=== PATIENT | male | born 1940 | race Caucasian/White ===

== ENCOUNTER 2022-03-06 07:35 | Day surgery (SDC) | payer MEDICARE, BC, SELFPAY ==
--- NOTE | 2022-03-06 07:33 | ANES.PREOP_ITS ---
General Info Date of Service Date Performed: 03/06/22 Height: 5 ft 10 in Weight: 86.2 kg Body Mass Index (BMI): 27.2 Surgical Procedure: Operation Date: 03/06/22 09:10 Proposed Procedure Side Surgeon p Cataract Extraction with IOL Implant Left Ramakrishna Augustine MD Meds Allergies and Home Medications Allergies Allergy/AdvReac Type Severity Reaction Status Date / Time No Known Allergies Allergy Verified 03/06/22 08:02 Home Medication Medication Instructions Recorded amlodipine 2.5 mg tablet 2.5 mg PO HS 03/02/22 ascorbic acid (vitamin C) 500 mg 500 mg PO DAILY 03/02/22 tablet (Vitamin C) calcium carbonate 600 mg-vitamin 1 tab PO DAILY 03/02/22 D3 5 mcg (200 unit) tablet cholecalciferol (vitamin D3) 25 1,000 unit PO DAILY 03/02/22 mcg (1,000 unit) capsule (Vitamin D3) doxazosin 8 mg tablet 8 mg PO DAILY 03/02/22 finasteride 5 mg tablet 5 mg PO DAILY 03/02/22 hydrochlorothiazide 12.5 mg tablet 12.5 mg PO QAM 03/02/22 ibuprofen 200 mg tablet 200 - 400 mg PO Q6H PRN 03/02/22 lisinopril 20 mg tablet 20 mg PO DAILY 03/02/22 omega-3 fatty acids 1 cap PO DAILY 03/02/22 omeprazole 40 mg capsule,delayed 40 mg PO HS 03/02/22 release selenium 50 mcg tablet 50 mcg PO QWEEK 03/02/22 simvastatin 20 mg tablet 20 mg PO HS 03/02/22 aspirin 81 mg capsule,delayed 81 mg PO DAILY 03/03/22 release Current Visit Medications: Current Medications Generic Name Dose Route Start Last Admin Trade Name Freq PRN Reason Stop Dose Admin Acetaminophen 1,000 mg 03/06/22 06:00 Acetaminophen 500 Mg Tab PO Q4H PRN PRN Miscellaneous Medication 0 ml 03/06/22 06:00 Prednisolone 1%, Moxifloxacin 0.5%, Nepafenac 0.1% 5ml Btl OS DIRECTED [facility] Miscellaneous Medication 0 ml 03/06/22 06:00 Tropicam./Phenyleph. (1/2.5%) 5 Ml Btl OS DIRECTED [facility] Tetracaine HCl 0 ml 03/06/22 06:00 Tetracaine 0.5% 4 Ml Btl OS DIRECTED [facility] PFS Active Problems Active Problems: Problem Status Onset Code Posterior subcapsular age-related cataract of left eye H25.042 Nuclear sclerotic cataract of left eye H25.12 Medical History Medical History BPH (benign prostatic hyperplasia) Bradycardia DJD (degenerative joint disease) First degree heart block and rare PVC on EKG 2013 & 2017 GERD (gastroesophageal reflux disease) Glucose intolerance Hearing loss Hepatitis B Hypertension Tear of meniscus of left knee Surgical History Surgical History History of laparoscopic appendectomy Hx of tonsillectomy Tobacco Smoking/Tobacco Use Status: Never Alcohol Alcohol Intake: current Alcohol intake frequency: 0-2 drinks per day Substance Use Substance use type: does not use Vital Signs and Lab Results Lab Results Blood Type / Crossmatch: No Data to Display Complete Blood Count: No Data to Display Complete Metabolic Panel: No Data to Display Liver Function Panel: No Data to Display Coagulation Panel: No Data to Display Cardiac Panel: No Data to Display Arterial Blood Gas: No Data to Display Venous Blood Gas: No Data to Display Pancreas Panel: No Data to Display Thyroid Panel: No Data to Display Infectious Disease: No Data to Display Blood Cultures: No Data to Display Toxicology Panel: 2 No Data to Display Anesthesia Assessment and Plan Anesthesia History Personal History: No History of Anesthesia Complications Family History: No Family History of Anesthesia Complications Exercise Tolerance Exercise Tolerance: Metabolic Equivalents>4 Pertinent Negatives Pertinent Negatives: No Symptoms of GERD Cardiac & Pulmonary Exam Cardiac Exam: Normal S1/S2 Heart Sounds Pulmonary Exam: Clear Bilateral Breath Sounds Implantable Cardiac Device Does patient have a Pacemaker or an ICD?: No Airway Exam Known Difficult Airway: No Mallampati Class: 2 Mouth Opening: Normal (> 3cm) Thyromental Distance: Greater than 3 cm Neck Range of Motion: Full ROM Neck Circumference: Normal Teeth Condition: Normal Dentition ASA Classification ASA Score: ASA 2 Emergency Case?: No NPO Status NPO Status: NPO Clears >2 hours, Solids >8 hours Anesthesia Plan Resuscitation Status: Full Code Anesthesia Technique: MAC Anesthesia Airway Planned: Natural Airway Monitors Used: Standard Monitors
[2022-03-06 08:06] VITALS: BP 162/80; PULSE 64; RESP 16; TEMP 36.5; O2SAT 96
[2022-03-06] MEDS: Tropicam./Phenyleph. (1/2.5%) 5 ML BTL OS ×3 (08:18→08:29)
[2022-03-06] MEDS: Tetracaine 0.5% 4 ML BTL OS (08:39)
[2022-03-06] MEDS: Povidone-Iodine Ophth 30 ML BTL (08:41)
[2022-03-06] MEDS: Lidocaine 2% Jelly 6 ML SYR (08:44)
[2022-03-06 08:45] VITALS: BMI 27.2
[2022-03-06] MEDS: Duovisc Viscoelastic System EACH 1 EACH (08:46)
[2022-03-06] MEDS: Balanced Salt Soln.-PLUS 500 ML BAG (08:46)
[2022-03-06 09:09] VITALS: BP 148/81; PULSE 62; RESP 16; TEMP 36.5; O2SAT 92
--- NOTE | 2022-03-06 09:09 | W.PM.DSUDISC ---
Discharge Plan Disposition Patient Disposition: HOME Condition: Good Discharge Details Attending Provider: Ramakrishna Augustine Primary Care Provider: Ramakrishna Blanca Home Meds and New Rx's Prescriptions: No Action lisinopril 20 mg tablet 20 mg PO DAILY 0RF Label Comments: TAKE ONE TABLET BY MOUTH ONE TIME DAILY amlodipine 2.5 mg tablet 2.5 mg PO HS 0RF Label Comments: TAKE ONE TABLET BY MOUTH ONE TIME DAILY calcium carbonate-vitamin D3 [Calcium + D] 600 mg-5 mcg (200 unit) Tablet 1 tab PO DAILY 0RF omeprazole 40 mg capsule,delayed release(DR/EC) 40 mg PO HS 0RF Label Comments: Take 1 capsule by mouth 30 minutes before meals twice a day selenium 50 mcg Tablet 50 mcg PO QWEEK 0RF doxazosin 8 mg tablet 8 mg PO DAILY 0RF Label Comments: TAKE ONE TABLET BY MOUTH ONE TIME DAILY ascorbic acid (vitamin C) [Vitamin C] 500 mg Tablet 500 mg PO DAILY 0RF simvastatin 20 mg tablet 20 mg PO HS 0RF Label Comments: TAKE ONE TABLET BY MOUTH IN THE EVENING ibuprofen 200 mg Tablet 200 - 400 mg PO Q6H PRN0RF finasteride 5 mg tablet 5 mg PO DAILY 0RF Label Comments: TAKE ONE TABLET BY MOUTH ONE TIME DAILY cholecalciferol (vitamin D3) [Vitamin D3] 25 mcg (1,000 unit) Capsule 1,000 unit PO DAILY 0RF Fish Oil Capsule 1 cap PO DAILY 0RF hydrochlorothiazide 12.5 mg tablet 12.5 mg PO QAM 0RF Label Comments: TAKE ONE TABLET BY MOUTH IN THE MORNING aspirin 81 mg Capsule,Delayed Release(Dr/Ec) 81 mg PO DAILY 0RF Discharge Instructions Stand Alone Forms: Post-op Topical Cataract, Bj Moy (DSU) Discharge Orders Discharge Orders: Discharge Order (Routine); Ordered 03/06/22 Ordered By: Ramakrishna Augustine DS: Diagnosis Discharge Diagnosis (1) Nuclear sclerotic cataract of left eye: Status: Resolved (2) Posterior subcapsular age-related cataract of left eye: Status: Resolved
--- NOTE | 2022-03-06 09:10 | W.PM.OP ---
Date of service: 03/06/22 Time of Service: 09:10 Operative Note Operative Note DATE OF PROCEDURE: 03/06/22 PRE-OP DIAGNOSIS: Nuclear/posterior subcapsular cataract, left eye POST-OP DIAGNOSIS: same PROCEDURE: Cataract extraction using phacoemulsification with intraocular lens implant, left eye SURGEON: Ramakrishna Augustine ANESTHESIA TYPE: Local By Surgeon and MAC Refer to Anesthesia Record PATHOLOGY: none sent COMPLICATIONS: None Patient was transported to: same day Patient's condition: stable Implants: Mario and Mario / [employer] Tecnis [id number] Indications: Progressive decreased vision due to cataract, left eye Procedure Description: CATARACT SURGERY OPERATIVE REPORT PREOPERATIVE DIAGNOSIS: 1. Nuclear/posterior subcapsular cataract, left eye POSTOPERATIVE DIAGNOSIS: Same OPERATION: 1. Cataract extraction using phacoemulsification with posterior chamber intraocular lens implant, left eye. IOL: IOL Esl Professor/Model: Mario & Mario / ADRIENNE Tecnis [id number] IOL Power: + 18.0 diopters IOL Serial Number: [id number] Optic Diameter: 6.0 mm Haptic/Overall Diameter: 13.0 mm PHACO INFO: Jose [employer] Vision System with OZil and Active Fluidics Cumulative Dispersed Energy (CDE): 16.61 seconds SURGEON: Ramakrishna Augustine MD, DULCE ANESTHESIA: Monitored A [facility] (MAC), with local sub-tenon's anesthetic infiltration COMPLICATIONS: None SPECIMENS: None INDICATIONS FOR PROCEDURE: The patient is an 81-year-old male with history of diminished visual acuity in his left eye secondary to the development of significant nuclear and posterior subcapsular cataract. The option of cataract surgery was offered to the patient and he felt he was symptomatic enough that he wished to proceed. PROCEDURE: The correct surgical eye was identified and marked as the left eye and the pupil was dilated in the preoperative area using mydriatics and cycloplegics. The dilated pupil size was 8.0 mm. Oral sedation was administered in the form of an Imprimis MKO Melt (midazolam 3mg/ketamine 25mg/ondansetron 2mg). The patient was brought to the operating room where cardiopulmonary monitoring was instituted and surgical time-out was performed, confirming the correct operative eye and IOL power. Topical anesthesia was administered and ophthalmic povidone-iodine 5% was instilled into the conjunctival fornices. Lidocaine gel was applied to the cornea and the shavonne-ocular area was prepped with Betadine 10% solution and draped in the usual sterile fashion for intraocular surgery, including an aperture drape. A Tegaderm transparent film dressing was cut in half and used to cover the lashes and lid margins. Care was taken to sequester the lashes and lid margins under the Tegaderm dressing. A lid speculum was placed between the lids of the operative eye and the Jose [employer] Revalia operating microscope was maneuvered into position. Santos scissors were then used to make a conjunctival buttonhole approximately 6mm posterior to the limbus in the inferonasal quadrant. Blunt dissection was carried out to expose bare sclera, and a blunt-tipped sub-tenon?s anesthesia cannula was introduced and passed posteriorly along the globe where non-preserved plain lidocaine was injected into posterior sub-Tenon?s space. A sideport knife was used to make a paracentesis port superiorly/superiortemporally. Intraocular phenylephrine/lidocaine was injected int the anterior chamber.. The anterior chamber was filled with viscoelastic. A 2.4mm keratome knife was used to create a half-thickness groove at the limbus and then to construct a three-plane near-clear corneal tunnel extending 2.0mm into clear cornea at the 3:00 position. A flap was raised on the anterior capsule and capsulorhexis forceps were used to complete a continuous curvilinear capsulorhexis of 5.0 mm. Balanced salt solution was then used to perform cortical cleaving hydrodissection and nuclear hydrodelineation until the lens could be freely rotated within the capsular bag. The lens nucleus was then disassembled and removed within the capsular bag and iris plane using phacoemulsification. Residual cortical material was removed using the 45-degree angled silicone I/A tip with 0.3mm port. The posterior capsule was carefully polished to remove as much residual lens epithelial cells as safely possible. The capsular bag was then inflated and the anterior chamber deepened with viscoelastic. The lens implant described above was inserted into the capsular bag using the ADRIENNE [place] Injector. A Kuglen hook was used to dial the IOL into position. Residual viscoelastic was then removed first from posterior to the IOL, then from the anterior chamber using the I/A handpiece. The lens implant was noted to center nicely within the capsular bag. The incisions were stromally hydrated, and the anterior chamber was reformed using BSS. Then 0.5cc of moxifloxacin 1.0mg/ml were injected into the capsular bag and anterior chamber. The incisions were checked with a Weck spear and found to be secure. Several drops of ophthalmic povidone-iodine 5% were then applied to the eye followed by two drops of Imprimis combination prednisolone/moxifloxacin/nepafenac solution. The drapes were removed and a clear plastic protective eye shield was placed over the eye. The patient was then returned to Same Day Surgery in stable condition.
--- NOTE | 2022-03-06 09:27 | W.ANESPOSTOP ---
Postoperative Evaluation Date, Time and Location Date Performed: 03/06/22 Time Performed: 09:10 Patient Location: Day Surgery Unit Vital Signs Most Recent Imported Vital Signs: Most Recent Vital Signs Temp Pulse Resp BP Pulse Ox 36.5 C 62 16 148/81 H 92 03/06/22 09:09 03/06/22 09:09 03/06/22 09:09 03/06/22 09:09 03/06/22 09:09 Pain Score Most Recent Pain Score: Most Recent Pain Score Pain Level 0 03/06/22 08:06 Assessment Mental Status: Awake (Alert & Oriented to Patient Baseline) Airway and Respiratory Function: Patent airway with normal (patient baseline) respiratory exam Cardiovascular Function: Hemodynamically Stable Hydration Status: Adequately Hydrated Nausea & Vomiting: No Nausea or Vomiting Pain: Pt. Denies Any Pain Peripheral Nerve Block: Other (Local by Dr. Augustine)
[2022-03-06 09:40] VITALS: BP 130/70; PULSE 67; RESP 16; TEMP 36.5; O2SAT 94
== END 2022-03-06 09:49 | disposition home or self-care (01) ==
PROVIDERS: PCP Family Medicine; Visit Provider Ophthalmology
PROC: (CPT 66984; principal; 2022-03-06 09:00)
DX: H25.042 Posterior subcapsular polar age-related cataract, left eye (principal); I10 Essential (primary) hypertension; K21.9 Gastro-esophageal reflux disease without esophagitis; R00.1 Bradycardia, unspecified
CPT/HCPCS: 66984; V2632

== ENCOUNTER 2022-03-20 07:03 | Day surgery (SDC) | payer MEDICARE, BC, SELFPAY ==
--- NOTE | 2022-03-20 06:24 | W.ANESPRE ---
General Info Date of Service Date Performed: 03/20/22 Height: 5 ft 10 in Weight: 87 kg Body Mass Index (BMI): 27.5 Surgical Procedure: Operation Date: 03/20/22 08:25 Proposed Procedure Side Surgeon p Cataract Extraction with IOL Implant Right Ramakrishna Augustine MD Meds Allergies and Home Medications Allergies Allergy/AdvReac Type Severity Reaction Status Date / Time No Known Allergies Allergy Verified 03/20/22 07:18 Home Medication Medication Instructions Recorded amlodipine 2.5 mg tablet 2.5 mg PO HS 03/02/22 ascorbic acid (vitamin C) 500 mg 500 mg PO DAILY 03/02/22 tablet (Vitamin C) calcium carbonate 600 mg-vitamin 1 tab PO DAILY 03/02/22 D3 5 mcg (200 unit) tablet cholecalciferol (vitamin D3) 25 1,000 unit PO DAILY 03/02/22 mcg (1,000 unit) capsule (Vitamin D3) doxazosin 8 mg tablet 8 mg PO DAILY 03/02/22 finasteride 5 mg tablet 5 mg PO DAILY 03/02/22 hydrochlorothiazide 12.5 mg tablet 12.5 mg PO QAM 03/02/22 ibuprofen 200 mg tablet 200 - 400 mg PO Q6H PRN 03/02/22 lisinopril 20 mg tablet 20 mg PO DAILY 03/02/22 omega-3 fatty acids 1 cap PO DAILY 03/02/22 omeprazole 40 mg capsule,delayed 40 mg PO HS 03/02/22 release selenium 50 mcg tablet 50 mcg PO QWEEK 03/02/22 simvastatin 20 mg tablet 20 mg PO HS 03/02/22 aspirin 81 mg capsule,delayed 81 mg PO DAILY 03/03/22 release Current Visit Medications: Current Medications Generic Name Dose Route Start Last Admin Trade Name Freq PRN Reason Stop Dose Admin Acetaminophen 1,000 mg 03/20/22 06:00 Acetaminophen 500 Mg Tab PO Q4H PRN PRN Miscellaneous Medication 0 ml 03/20/22 06:00 Prednisolone 1%, Moxifloxacin 0.5%, Nepafenac 0.1% 5ml Btl OD DIRECTED [facility] Miscellaneous Medication 0 ml 03/20/22 06:00 Tropicam./Phenyleph. (1/2.5%) 5 Ml Btl OD DIRECTED [facility] Tetracaine HCl 0 ml 03/20/22 06:00 Tetracaine 0.5% 4 Ml Btl OD DIRECTED [facility] PFS Active Problems Active Problems: Problem Status Onset Code Posterior subcapsular age-related cataract, right eye H25.041 Nuclear sclerotic cataract of right eye H25.11 Nuclear sclerotic cataract of left eye H25.12 Posterior subcapsular age-related cataract of left eye H25.042 Medical History Medical History BPH (benign prostatic hyperplasia) Bradycardia DJD (degenerative joint disease) First degree heart block and rare PVC on EKG 2013 & 2017 GERD (gastroesophageal reflux disease) Glucose intolerance Hearing loss Hepatitis B Hypertension Tear of meniscus of left knee Surgical History Surgical History (Updated 03/20/22 @ 07:18 by Lena Briceno) History of laparoscopic appendectomy Hx of cataract surgery Hx of tonsillectomy Tobacco Smoking/Tobacco Use Status: Never Alcohol Alcohol Intake: current Alcohol intake frequency: 0-2 drinks per day Substance Use Substance use type: does not use Vital Signs and Lab Results Vital Signs Most Recent Vital Signs in EMR: Temp Pulse Resp BP Pulse Ox 36.2 C L 58 L 16 157/89 H 95 03/20/22 07:24 03/20/22 07:24 03/20/22 07:24 03/20/22 07:24 03/20/22 07:24 Lab Results Blood Type / Crossmatch: No Data to Display Complete Blood Count: No Data to Display Complete Metabolic Panel: No Data to Display Liver Function Panel: No Data to Display Coagulation Panel: No Data to Display Cardiac Panel: No Data to Display Arterial Blood Gas: No Data to Display Venous Blood Gas: No Data to Display Pancreas Panel: No Data to Display Thyroid Panel: No Data to Display Infectious Disease: No Data to Display Blood Cultures: No Data to Display Toxicology Panel: No Data to Display Anesthesia Assessment and Plan Anesthesia History Personal History: No History of Anesthesia Complications Family History: No Family History of Anesthesia Complications Exercise Tolerance Exercise Tolerance: Metabolic Equivalents>4 Cardiac & Pulmonary Exam Cardiac Exam: Normal S1/S2 Heart Sounds Pulmonary Exam: Clear Bilateral Breath Sounds Implantable Cardiac Device Does patient have a Pacemaker or an ICD?: No Airway Exam Known Difficult Airway: No Mallampati Class: 2 Mouth Opening: Normal (> 3cm) Thyromental Distance: Greater than 3 cm Neck Range of Motion: Full ROM Neck Circumference: Normal Teeth Condition: Normal Dentition ASA Classification ASA Score: ASA 2 Emergency Case?: No NPO Status NPO Status: NPO Clears >2 hours, Solids >8 hours Anesthesia Plan Resuscitation Status: Full Code Anesthesia Technique: MAC Anesthesia Airway Planned: Natural Airway Monitors Used: Standard Monitors Preoperative Comments:: 81 yo male for cataract removal. Sig PMHx: bradycardia, GERD, HTN. Previous cat had MKO. no health history change.
[2022-03-20] MEDS: Tropicam./Phenyleph. (1/2.5%) 5 ML BTL OD ×3 (07:17→07:29)
[2022-03-20 07:24] VITALS: BP 157/89; PULSE 58; RESP 16; TEMP 36.2; O2SAT 95
[2022-03-20 07:28] VITALS: BMI 27.5
--- NOTE | 2022-03-20 07:59 | ROE_ITS ---
Date of service: 03/20/22 Time of Service: 08:40 Operative Note Operative Note DATE OF PROCEDURE: 06/13/21 PRE-OP DIAGNOSIS: Nuclear/posterior subcapsular cataract, right eye POST-OP DIAGNOSIS: same PROCEDURE: Cataract extraction using phacoemulsification with intraocular lens implant, right eye SURGEON: Ramakrishna Augustine ANESTHESIA TYPE: Local By Surgeon and MAC Refer to Anesthesia Record ESTIMATED BLOOD LOSS: 0 PATHOLOGY: none sent COMPLICATIONS: None Patient was transported to: same day Patient's condition: stable Implants: Mario & Mario/ADRIENNE Tecnis [id number] Indications: Progressive visual loss due to cataract, right eye Procedure Description: CATARACT SURGERY OPERATIVE REPORT PREOPERATIVE DIAGNOSIS: 1. Nuclear/posterior subcapsular cataract, left eye POSTOPERATIVE DIAGNOSIS: Same OPERATION: 1. Cataract extraction using phacoemulsification with posterior chamber intraocular lens implant, right eye. IOL: IOL Rubber Worker/Model: Mario & Mario / ADRIENNE Tecnis [id number] IOL Power: + 16.5 diopters IOL Serial Number: [id number] Optic Diameter: 6.0mm Haptic/Overall Diameter: 13.0mm PHACO INFO: Jose [employer] Medical[employer]ion Vision System with OZil and Active Fluidics Cumulative Dispersed Energy (CDE): 7.07 seconds SURGEON: Ramakrishna Augustine MD, DULCE ANESTHESIA: Monitored Anesthesia Care (MAC), with local sub-tenon's anesthetic infiltration COMPLICATIONS: None SPECIMENS: None INDICATIONS FOR PROCEDURE: The patient is an 81-year-old gentleman with history of myopia who has developed symptomatic bilateral nuclear and posterior subcapsular cataract. He has already undergone cataract surgery in the left eye and is doing well postoperati vely. He now presents for cataract surgery in the right eye. PROCEDURE: The correct surgical eye was identified and marked as the right eye and the pupil was dilated in the preoperative area using mydriatics and cycloplegics. The dilated pupil size was 7.0 mm. Oral sedation was administered in the form of an Imprimis MKO Melt (midazolam 3mg/ketamine 25mg/ondansetron 2mg). The patient was brought to the operating room where cardiopulmonary monitoring was instituted and surgical time-out was performed, confirming the correct operative eye and IOL power. Topical anesthesia was administered and ophthalmic povidone-iodine 5% was instilled into the conjunctival fornices. Lidocaine gel was applied to the cornea and the shavonne-ocular area was prepped with Betadine 10% solution and draped in the usual sterile fashion for intraocular surgery, including an aperture drape. A Tegaderm transparent film dressing was cut in half and used to cover the lashes and lid margins. Care was taken to sequester the lashes and lid margins under the Tegaderm dressing. A lid speculum was placed between the lids of the operative eye and the Jose [employer] operating microscope was maneuvered into position. Santos scissors were then used to make a conjunctival buttonhole approximately 6mm posterior to the limbus in the inferonasal quadrant. Blunt dissection was carried out to expose bare sclera, and a blunt-tipped sub-tenon?s anesthesia cannula was introduced and passed posteriorly along the globe where non- preserved plain lidocaine was injected into posterior sub-Tenon?s space. A sideport knife was used to make a paracentesis port inferotemporally. Intraocular phenylephrine/lidocaine was injected into the anterior chamber. The anterior chamber was filled with viscoelastic. A 2.4mm keratome knife was used to create a half-thickness groove at the limbus and then to construct a three- plane near-clear corneal tunnel extending 2.0mm into clear cornea superiortem porally. A flap was raised on the anterior capsule and capsulorhexis forceps were used to complete a continuous curvilinear capsulorhexis of 5.0 mm. Balanced salt solution was then used to perform cortical cleaving hydrodissection and nuclear hydrodelineation until the lens could be freely rotated within the capsular bag. The lens nucleus was then disassembled and removed within the capsular bag and iris plane using phacoemulsification. Residual cortical material was removed using the I/A handpiece. The posterior capsule was carefully polished to remove as much residual lens epithelial cells as safely possible. The capsular bag was then inflated and the anterior chamber deepened with viscoelastic. The lens implant described above was inserted into the capsular bag using the ADRIENNE [place] Injector. A Kuglen hook was used to dial the IOL into position. Residual viscoelastic was then removed first from posterior to the IOL, then from the anterior chamber using the I/A handpiece. The lens implant was noted to center nicely within the capsular bag. The incisions were stromally hydrated, and the anterior chamber was reformed using BSS. Then 0.5cc of moxifloxacin 1.0mg/ml were injected into the capsular bag and anterior chamber. The incisions were checked with a Weck spear and found to be secure. Several drops of ophthalmic povidone-iodine 5% were then applied to the eye followed by two drops of Imprimis combination prednisolone/moxifloxacin/nepafenac solution. The drapes were removed and a clear plastic protective eye shield was placed over the eye. The patient was then returned to Same Day Surgery in stable condition.
--- NOTE | 2022-03-20 07:59 | W.PM.DSUDISC ---
Discharge Plan Disposition Patient Disposition: HOME Condition: Good Discharge Details Attending Provider: Ramakrishna Augustine Primary Care Provider: Ramakrishna Blanca Home Meds and New Rx's Prescriptions: No Action lisinopril 20 mg tablet 20 mg PO DAILY 0RF Label Comments: TAKE ONE TABLET BY MOUTH ONE TIME DAILY amlodipine 2.5 mg tablet 2.5 mg PO HS 0RF Label Comments: TAKE ONE TABLET BY MOUTH ONE TIME DAILY calcium carbonate-vitamin D3 [Calcium + D] 600 mg-5 mcg (200 unit) Tablet 1 tab PO DAILY 0RF omeprazole 40 mg capsule,delayed release(DR/EC) 40 mg PO HS 0RF Label Comments: Take 1 capsule by mouth 30 minutes before meals twice a day selenium 50 mcg Tablet 50 mcg PO QWEEK 0RF doxazosin 8 mg tablet 8 mg PO DAILY 0RF Label Comments: TAKE ONE TABLET BY MOUTH ONE TIME DAILY ascorbic acid (vitamin C) [Vitamin C] 500 mg Tablet 500 mg PO DAILY 0RF simvastatin 20 mg tablet 20 mg PO HS 0RF Label Comments: TAKE ONE TABLET BY MOUTH IN THE EVENING ibuprofen 200 mg Tablet 200 - 400 mg PO Q6H PRN0RF finasteride 5 mg tablet 5 mg PO DAILY 0RF Label Comments: TAKE ONE TABLET BY MOUTH ONE TIME DAILY cholecalciferol (vitamin D3) [Vitamin D3] 25 mcg (1,000 unit) Capsule 1,000 unit PO DAILY 0RF Fish Oil Capsule 1 cap PO DAILY 0RF hydrochlorothiazide 12.5 mg tablet 12.5 mg PO QAM 0RF Label Comments: TAKE ONE TABLET BY MOUTH IN THE MORNING aspirin 81 mg Capsule,Delayed Release(Dr/Ec) 81 mg PO DAILY 0RF Discharge Instructions Stand Alone Forms: Post-op Topical Cataract, Bj Moy (DSU) Discharge Orders Discharge Orders: Discharge Order (Routine); Ordered 03/20/22 Ordered By: Ramakrishna Augustine DS: Diagnosis Discharge Diagnosis (1) Nuclear sclerotic cataract of right eye: Status: Resolved (2) Posterior subcapsular age-related cataract, right eye: Status: Resolved
[2022-03-20] MEDS: Tetracaine 0.5% 4 ML BTL OD (08:13)
[2022-03-20] MEDS: Balanced Salt Soln.-PLUS 500 ML BAG (08:14)
[2022-03-20] MEDS: Duovisc Viscoelastic System EACH 1 EACH (08:15)
[2022-03-20] MEDS: Lidocaine 2% Jelly 6 ML SYR (08:16)
[2022-03-20] MEDS: Povidone-Iodine Ophth 30 ML BTL (08:16)
[2022-03-20 08:35] VITALS: BP 153/78; PULSE 57; RESP 16; TEMP 36.5; O2SAT 94
--- NOTE | 2022-03-20 08:36 | W.ANESPOSTOP ---
Postoperative Evaluation Date, Time and Location Date Performed: 03/20/22 Time Performed: 08:36 Patient Location: Day Surgery Unit Vital Signs Most Recent Imported Vital Signs: Most Recent Vital Signs Temp Pulse Resp BP Pulse Ox 36.2 C L 58 L 16 157/89 H 95 03/20/22 07:24 03/20/22 07:24 03/20/22 07:24 03/20/22 07:24 03/20/22 07:24 Pain Score Most Recent Pain Score: Most Recent Pain Score Pain Level 0 03/20/22 07:24 Assessment Mental Status: Awake (Alert & Oriented to Patient Baseline) Airway and Respiratory Function: Patent airway with normal (patient baseline) respiratory exam Cardiovascular Function: Hemodynamically Stable Hydration Status: Adequately Hydrated Nausea & Vomiting: No Nausea or Vomiting Pain: Pt. Denies Any Pain Peripheral Nerve Block: Other (Local by Dr. Augustine)
[2022-03-20 09:04] VITALS: BP 128/69; PULSE 59; RESP 16; TEMP 36.5; O2SAT 91
== END 2022-03-20 09:55 | disposition home or self-care (01) ==
PROVIDERS: PCP Family Medicine; Visit Provider Ophthalmology
PROC: (CPT 66984; principal; 2022-03-20 08:15)
DX: H25.041 Posterior subcapsular polar age-related cataract, right eye (principal); N40.0 Benign prostatic hyperplasia without lower urinary tract symptoms; K21.9 Gastro-esophageal reflux disease without esophagitis; I10 Essential (primary) hypertension
CPT/HCPCS: 66984; V2632